=== PATIENT | female | born 1965 | race Caucasian/White ===

== ENCOUNTER 2025-05-02 15:35 | Emergency (ER) | payer MEDICAID ==
[~2025-05-02] VITALS: Ht 160 cm; Wt 100.6 kg
[2025-05-02 15:39] VITALS: BP 168/81; PULSE 83; RESP 16; TEMP 98.3; O2SAT 100
--- NOTE | 2025-05-02 17:28 | Physician Documentation ---
History of Present Illness ~ Chief Complaint: See Chief Complaint Stated Complaint: WEEZING Time Seen by MD: 17:07 Primary Medical Doctor: jasmina [facility] 59-year-old female who is being followed in the outpatient setting states that she has had occasional wheezing in her throat. He has a chronic cigarette smoker and vapor. States that she has never been diagnosed with COPD. Reports increased shortness of breath and also states she has a history of anxiety. He adds that she had a recent x-ray which had no acute findings. He was prescribed a rescue inhaler but states that it only helps for a little while Day of Onset: May 02, 2025 Medication Reconciliation Allergies: Uncoded Allergies: ERYTHROMYCIN (Allergy, Unknown, 05/02/25) Scheduled Budesonide/Formoterol Fumarate (Symbicort 80-4.5 Mcg Inhaler), 2 PUFFS INH Q12H Budesonide/Formoterol Fumarate (Symbicort 80-4.5 Mcg Inhaler), 2 PUFFS INH Q12H Past Medical History Past Medical History: Anxiety Past Surgical History: noncontributory Alcohol Use: None Drug Use: none Review of Systems All Other Systems at this time: Reviewed and Negative ROS As stated above in the HPI, otherwise all systems are reviewed and negative. Physical Exam Vital Signs: Temperature: 98.3, Source: Oral, Heart Rate: 83, Respiratory Rate: 16, BP: 168/81, Pulse Oximetry: 100, Weight: 100.600 Oxygen Flow Rate: 0 Physical Exam General: Alert, no apparent distress. Respiratory: Lungs clear, diminished Chest: No accessory muscle use. Cardiovascular: Regular rate and rhythm, no murmurs. Neurologic: Oriented x4. Psychiatric: Normal mood and affect. Skin: Normal color, warm and dry. No edema, no ecchymosis. Progress Results/Orders Results/Orders Vital Signs 05/02/25 15:39 Temp 98.3 Pulse 83 Resp 16 B/P (MAP) 168/81 Pulse Ox 100 O2 Flow Rate 0 Medical Decision Making Additional information obtaine: N/A Findings Based on patient's reported history I do not see any reason to pursue any further imaging as she does not present acutely ill and she has a recent negative x-ray. However I do suspect that she has a undiagnosed COPD. He has spent a good deal of time explaining to her what COPD entails and I made note of her bilateral diminished lung sounds. There was no signs of wheezes. He is not currently short of breath and has normal vitals at this time. I am however going to discharge her with a maintenance inhaler. Explained to her that albuterol is designed for acute situations versus an everyday use as it will not work as well Additionally I encouraged her to follow up with the primary care in order to obtain a pulmonary function test for an official COPD diagnosis Heart Score: 5 Differential Dx:Considerations: Include: anxiety, asthma, bronchitis, cardiogenic shock, CHF, COPD, dysrhythmia, hypertension, accelerated, hypertension, essential, hypertension, malignant, hyperventilation, hyponatremia, myocardial infarction, panic attack, pneumonia, pneumonitis, pneumothorax, PSVT, pulmonary embolism, respiratory distress, respiratory failure, sinusitis, upper resp. infection, other Departure Disposition: 01 HOME / SELF CARE / HOMELESS Impression: Primary Impression: COPD (chronic obstructive pulmonary disease) Condition: Improved Discharge Instructions: Chronic Obstructive Pulmonary Disease Exacerbation, [id number] Additional Instructions: As I instructed you it is important that she follow up with the primary care to further evaluate your breathing problems. A pulmonary functional test is ideal Referrals: NO PRIMARY CARE PROVIDER (PCP) Prescriptions Budesonide/Formoterol Fumarate (Symbicort 80-4.5 Mcg Inhaler) 80 Mcg-4.5 Mcg/Actuation Hfa.aer.ad 2 PUFFS INH Q12H for 30 Days, #2 GM 0 Refills Prov: BILLY RICH NP 05/02/25 Budesonide/Formoterol Fumarate (Symbicort 80-4.5 Mcg Inhaler) 80 Mcg-4.5 Mcg/Actuation Hfa.aer.ad 2 PUFFS INH Q12H for 30 Days, GM 0 Refills Prov: BILLY RICH NP 05/02/25 Education Educated: Patient Educated regarding: diagnosis Signature Scribe Signature: f Attestation: Scribed for Billy Rich Np by Billy Michel NP . 05/03/25 09:05 BILLY RICH NP May 02, 2025 17:28
[2025-05-02] MEDS ORDERED: BUDE10.22 INH (17:31)
== END 2025-05-02 17:44 | disposition home or self-care (01) ==
LOC: ER 15:36
DX: J44.9 Chronic obstructive pulmonary disease, unspecified (principal); F17.210 Nicotine dependence, cigarettes, uncomplicated; F41.9 Anxiety disorder, unspecified; Z79.899 Other long term (current) drug therapy
CPT/HCPCS: 99283

== ENCOUNTER 2025-05-13 09:53 | Outpatient (CLI) | payer MEDICARE, MEDICAID ==
[~2025-05-13 09:53] MED LIST: BUDE10.22 INH
[2025-05-13 10:50] VITALS: PULSE 72; RESP 16; O2SAT 98
--- NOTE | 2025-05-13 14:32 | PROCEDURE NOTE - Respiratory ---
Procedure Note-Respiratory Providers to Copies To 1: WILTON PULLIAM MD Procedure Name: This is a complete pulmonary function study dated May 13, 2025. Spirometry measurements: There is mild reduction in both the forced vital capacity and the FEV1 measurements. The FEV1 ratio is normal. Some of the flow rate measurements are borderline reduced. Bronchodilator was not administered as part of the study. Lung volume measurements: All of the major lung volume determinations are normal. Lung diffusion measurement: The DLCO measurement is normal. It is noted that the KVO measurement as well as the alveolar volume measurements are normal. Airway resistance measurement: The airway resistance shows no elevation. Conclusion: This study shows mild abnormality. There is evidence for obstructive ventilatory defect in the mild category. These findings suggest a diagnosis of mild smoking-related COPD. It is strongly recommended that the patient abstain from cigarette smoking. This patient should continue to receive bronchodilator medication. We have no previous studies for comparison. The DLCO measurement is in the normal range. LOLITA ZAPATA MD May 13, 2025 14:32
== END 2025-05-13 23:59 | disposition home or self-care (01) ==
LOC: RT 09:53
PROVIDERS: ATTEND Family Medicine
DX: R06.2 Wheezing (principal)
CPT/HCPCS: 94010; 94727; 94729; 94760

== ENCOUNTER 2025-06-14 20:34 | Emergency (ER) | payer MEDICARE, MEDICAID ==
[~2025-06-14] VITALS: Ht 160.7 cm; Wt 100.0 kg
--- NOTE | 2025-06-14 20:40 | Physician Documentation ---
History of Present Illness ~ Stated Complaint: PALIPATIONS Time Seen by MD: 20:39 Primary Medical Doctor: jasmina [facility] Patient presents to the emergency room secondary to palpitations. Patient has history of anxiety is to recently starting to wean herself off of propranolol under instruction by her doctor. She states she began feeling symptoms that has about 330 this afternoon. Symptoms fail to improve therefore she took some propranolol and Klonopin that has symptoms still were not improving therefore she called EMS. Her symptoms resolved upon arrival to the emergency room. EMS found patient in sinus rhythm. She had denies any chest pain. She reports very distant history in the 90s of wearing a Holter monitor. Medication Reconciliation Allergies: Uncoded Allergies: ERYTHROMYCIN (Allergy, Unknown, 05/02/25) Scheduled Budesonide/Formoterol Fumarate (Symbicort 80-4.5 Mcg Inhaler), 2 PUFFS INH Q12H Budesonide/Formoterol Fumarate (Symbicort 80-4.5 Mcg Inhaler), 2 PUFFS INH Q12H Past Medical History Past Medical History: Anxiety Past Surgical History: noncontributory Alcohol Use: None Drug Use: none Review of Systems ROS All review of systems negative except as per HPI Physical Exam Physical Exam General: Patient is awake, alert, oriented x4 in no acute distress Head: Normocephalic and atraumatic. Eyes: Conjunctival normal. EOMI. PERRL. ENT: Mucous membranes moist. Neck: Supple, trachea is midline. Chest: Clear to auscultation bilaterally without rales, rhonchi, or wheezes. There is no accessory muscle use or retractions. Cardiac: RRR without murmurs, gallops, or rubs. Abd: Soft, nondistended, nontender, with normoactive bowel sounds. No guarding, rebound, or rigidity. Progress Results/Orders Results/Orders Orders - CORY VILLAGRAN MD Chest,Single View (06/14/25 21:00) Monitor (06/14/25 20:36) Saline Lock (06/14/25 20:36) Oxygen (06/14/25 20:36) Hs Troponin I W Calculations (06/14/25 23:36) Completed Orders - CORY VILLAGRAN MD Chest,Single View (06/14/25 21:00) Cbc/Diff (06/14/25 20:36) BMP (06/14/25 20:36) PBNP (06/14/25 20:36) Electrocardiogram (06/14/25 20:36) Hs Troponin I W Calculations (06/14/25 20:36) Hs Troponin I W Calculations (06/14/25 22:36) Vital Signs 06/14/25 20:44 Temp 97.7 Pulse 81 Resp 16 B/P (MAP) 156/76 Pulse Ox 97 Laboratory Tests Test 06/14/25 20:50 06/14/25 22:57 White Blood Count 9.5 Red Blood Count 4.11 L Hemoglobin 12.6 Hematocrit 38.3 Mean Corpuscular Volume 93.2 Mean Corpuscular Hemoglobin 30.6 Mean Corpuscular Hemoglobin Concent 32.8 L Red Cell Distribution Width 13.5 Platelet Count 338 Mean Platelet Volume 7.7 Neutrophils (%) (Auto) 68.9 Lymphocytes (%) (Auto) 22.0 Monocytes (%) (Auto) 5.5 Eosinophils (%) (Auto) 2.6 Basophils (%) (Auto) 1.0 Neutrophils # (Auto) 6.5 Lymphocytes # (Auto) 2.1 Monocytes # (Auto) 0.5 Eosinophils # (Auto) 0.2 Basophils # (Auto) 0.1 CBC Comment Sodium Level 139 Potassium Level 4.6 Chloride Level 105 Carbon Dioxide Level 28.4 Anion Gap 6 L Blood Urea Nitrogen 19 H Creatinine 1.05 H Estimated GFR/1.73 m2 53 BUN/Creatinine Ratio 18.1 Glucose Level 237 H Calcium Level 8.9 Troponin I High Sensitivity < 4 L < 4 L Troponin I High Sens Percent Delta Troponin I Hi Sens Absolute Change Pro-B-Type Natriuretic Peptide < 30 Albumin 3.2 L Chemistry Comments EKG/XRAY/CT/US/VASC/MRI EKG : Additional Comment EKG interpreted by myself shows time of 2037, rate 82, sinus rhythm, normal axis, no ST changes, T-wave inversions in leads V1 two and three Medical Decision Making Additional information obtaine: old records Findings Patient presents to the emergency room with palpitations. Differentials include but are not limited to ACS, cardiac arrhythmia, SVT, atrial fibrillation, V-tach therefore emergent labs and imaging indicated. Labs and imaging reassuring. Troponins negative x2. Given patient's history of anxiety along with weaned herself off of propranolol I believe she may have suffered honey anxiety attack. No evidence of heart strain and he had not believe she suffered dangerous cardiac arrhythmia. No syncope. She had denies any chest pain however if she did she would have a heart score of three. She is considered low risk. Differential Dx:Considerations: Include: angina / NV, atrial dysrhythmia, atrial fibrillation, atrial flutter, MAT, PACs, PSVT, sinus tachycardia, WPW, 1st degree AV block, 2nd degree AVB-type 1, 2nd degree AVB-type 2, 3rd degree AV block, PVCs, torsades de pointes, ventricular fibrillation, ventricular tachycardia, other Differential Dx:Considerations: Include anxiety/panic attack, Include digoxin toxicity, Include electrolyte disorder, Include heart failure, Include hyperthyroidism, Include hyperventilation, Include hypoxia, Include pacemaker malfunction, Include pulmonary embolus, Include renal failure, Include other Departure Disposition: 01 HOME / SELF CARE / HOMELESS Impression: Primary Impression: Palpitations Condition: Improved Discharge Instructions: Palpitations, [id number] Referrals: NO PRIMARY CARE PROVIDER (PCP) Signature Scribe Signature: No scribe Attestation: The note accurately reflects work and decisions made by me.Cory Villagran MD 06/14/25 23:37 CORY VILLAGRAN MD Jun 14, 2025 20:40
--- NOTE | 2025-06-14 20:41 | ELECTROCARDIOGRAPH REPORT ---
[facility] Test Date: 2025-06-14 Test Time: 20:38:10 Pat Name: FITO BARRY Department: EMERGENCY ROOM Room: Gender: F Damage Assessor: : 1965 Requested By: BINU NESBITT Order Number: [id number] Reading MD: Dr. REHAN Suazo Measurements Intervals Baker Rate: 82 P: -24 NJ: 143 QRS: 30 QRSD: 94 T: 243 QT: 343 QTc: 401 Interpretive Statements Sinus rhythm Low voltage, precordial leads Nonspecific T abnrm, anterolateral leads Electronically Signed On 06-16-2025 18:09:[address] REHAN Suazo Please click the below link to view image of tracing.
[2025-06-14 20:57] LABS: MEAN PLATELET VOLUME 7.7 FL (7.4-10.4); RED CELL DISTRIBUTION WIDTH 13.5 % (11.5-14.5)
--- NOTE | 2025-06-14 21:13 | RADIOLOGY REPORT ---
CHEST RADIOGRAPH INDICATION: CP TECHNIQUE: Single frontal view of the chest was obtained. COMPARISON: None FINDINGS: No focal consolidation. No significant pleural effusion. No pneumothorax. Mildly enlarged cardiomediastinal silhouette. IMPRESSION: No acute pulmonary process.
[2025-06-14 21:21] LABS: CREATININE 1.05 MG/DL (0.40-0.90); PRO BRAIN NATRIURETIC PEPTIDE < 30 PG/ML (0-125); TOTAL CARBON DIOXIDE 28.4 MMOL/L (24-32); eCRCL 48 ML/MIN; eGFR 53 ML/MIN
[2025-06-14 21:30] VITALS: BP 134/79; PULSE 73; RESP 24; O2SAT 95
[2025-06-15 00:25] VITALS: TEMP 97.7
== END 2025-06-15 00:28 | disposition home or self-care (01) ==
LOC: ER 20:35
DX: R00.2 Palpitations (principal); F41.9 Anxiety disorder, unspecified; Z79.899 Other long term (current) drug therapy
CPT/HCPCS: 36415; 71045; 80048; 83880; 84484; 85025; 93005; 99285